=== PATIENT | female | born 1975 | race Caucasian/White ===

== ENCOUNTER 2024-07-15 20:12 | Emergency (ER) | payer OTHER, SELFPAY ==
[2024-07-15 20:25] VITALS: BP 120/73; BP 131/85; PULSE 106; PULSE 112; RESP 16; TEMP 37; O2SAT 95; O2SAT 98; BMI 23.9
--- NOTE | 2024-07-15 21:07 | MHC.EDTECH ---
Patient was biba ,This pct tried to have Patient policy change clerk into hospital attire ,Patient refused and JUNIOR ACCOUNTANT BOOKKEEPER Diandra said, Patient does not have to change right now ''.
--- NOTE | 2024-07-15 21:27 | PC.NURSE ---
pt refuses tochange into hospital attire- pt growing increasingly aggitated while in dept- S.ORicardo Rogers at bedside. Pt appears to be under the influence, slurring words, glazed eyes. Pt denies that she has had a drinking problem and admits to 1 glass of wine. this nurse was able to de-escalate patient, however she refuses to ghotra as she is going home . pt awaiting MD craft. S.O. remains at bedside.
--- NOTE | 2024-07-15 22:00 | ED_ITS ---
HPI - General Adult General Chief complaint: Altered Mental Status Stated complaint: TIRE, DIFFICULT TO ARROUSE, ETOH PER EMS Time Seen by Provider: 07/15/24 22:00 Source: patient Mode of arrival: ambulatory Limitations: no limitations History of Present Illness ED Provider: renato PONCE narrative: Patient has had few drinks earlier took a nap around 1600 per boyfriend was difficult to arouse patient denied any substance abuse ambulatory in the ER no head injury no fever or chills patient is refusing any labs or UDS Related Data Allergies Allergy/AdvReac Type Severity Reaction Status Date / Time No Known Allergies Allergy Verified 07/15/24 20:32 Review of Systems Review of Systems: Yes all other systems are reviewed and are negative PMFSH Social History Social History Advance Directives: No Advance Directives Information Provided: No Physical Exam ED Vital Signs: Vital Signs - 24 hr 07/15/24 20:25 07/15/24 22:14 Temperature 98.6 F 98.6 F Pulse Rate 112 H 112 H Respiratory Rate 16 16 Blood Pressure 120/73 120/73 Pulse Oximetry 98 98 Oxygen Delivery Method Room Air Room Air BMI result Body Mass Index 23.9 Appearance: Alert. Oriented X3. No acute distress. ETOH++ ENT: Pharynx normal. Oral Mucosa moist Neck: Normal inspection. Neck supple. CVS: Normal heart rate and rhythm. Pulses normal. Respiratory: No respiratory distress. Equal air entry bilateral, no wheezing/rales/rhonchi Skin: Skin warm and dry. Normal skin color. Normal skin turgor. Extremities: No lower extremity edema. Neuro: Oriented X 3. Ambulatory in his steady Medical Decision Making Medical Decision Making MDM Narrative: Patient is refusing to do any further testing says she was fast asleep and does not know why she is here denied any substance abuse no prior history of same in the past had few drinks prior to going to the bed denied any SI or HI or significant depression will discharge patient home with sober BF Discharge Plan Discharge Clinical Impression: Alcoholic intoxication Patient Disposition: Home, Self-Care Instructions: Alcohol Intoxication (ED) Additional Instructions: Do not drink alcohol Report to ER if any concerns Interventions: ED Discharge Assessment Last Done: 07/15/24 22:14 Discharge Date/Time: 07/15/24 22:17 Print Language: Romanian
--- NOTE | 2024-07-15 22:10 | PC.NURSE ---
This RN witnessed patient attempting to leave ED, security present. patient encouraged to wait to stay and be evaluated by the physician. Dr. Hernandez assessed patient and cleared patient to leave ED. Patient ambulated out of ED w/ steady gait w/ present. Flomaurilio PERDOMO
[2024-07-15 22:14] VITALS: BP 120/73; PULSE 112; RESP 16; TEMP 37; O2SAT 98
== END 2024-07-15 22:17 | disposition home or self-care (01) ==
PROVIDERS: Emergency Provider Internal Medicine
DX: F10.920 Alcohol use, unspecified with intoxication, uncomplicated (principal); Y90.9 Presence of alcohol in blood, level not specified
CPT/HCPCS: 99282